=== PATIENT | female | born 1950 | race Caucasian/White ===

== ENCOUNTER 2016-10-02 07:08 | Emergency (ER) | payer OTHER ==
--- NOTE | 2016-10-02 07:55 | EDM.PDOC ---
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 In the past has been on the right side but this time it is on the left. Symptoms started yesterday. She has weakness of the left side of the face with inability to completely close her left eye. She's having taste disturbance and pain behind her left ear. When she drinks her coffee she notes that it runs out of the left corner of her mouth as well. She's had no recent illnesses or colds fevers or chills. she has no other neurologic complaints and no weakness of extremities.] Review of systems: As per history of present illness and below otherwise all systems reviewed and negative. Past medical history: As per history of present illness and as reviewed below otherwise noncontributory. Surgical history: As per history of present illness and as reviewed below otherwise noncontributory. Social history: No reported history of drug or alcohol abuse. Family history: As per history of present illness and as reviewed below otherwise noncontributory. Physical exam: HEENT: Her left eye is a little erythematous and she cannot completely close her left eye. The nasolabial fold on the left side is slightly diminished compared to the right. Her TMs are clear canals are clear a little S. wrinkling of the left forehead compared to the right. Also slightly less sensation to light touch of the left cheek as compared to the right Lungs: Clear to auscultation, breath sounds equal bilaterally, chest nontender. Heart: S1S2, regular, negative for clicks, rubs, or JVD. Abdomen: Soft, nondistended, nontender. Negative for masses or hepatosplenomegaly. Negative for costovertebral tenderness. Pelvis: Stable nontender. Genitourinary: Deferred. Rectal: Deferred. Extremities: Atraumatic, negative for cords or calf pain. Neurovascular unremarkable. Neuro: Awake, alert, oriented. Diagnostics: [] Therapeutics: [] Impression: [Begum's palsy] Plan: [She is given acyclovir 4 mg 5 times a day for 10 days and prednisone 60 mg a day for 5 days and then taper down 1 pill a day. 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 She also has guttate cellophane over her on a this is something that she learned from ENT . this will collect moisture in she won't have to take that left eye shut then.] Definitive disposition and diagnosis as appropriate pending reevaluation and review of above. - Related Data Allergies Allergy/AdvReac Type Severity Reaction Status Date / Time No Known Allergies Allergy Verified 10/02/16 07:28 Home Meds: Home Meds Apixaban [Eliquis] 5 mg PO BID 10/02/16 [History] DULoxetine [Cymbalta] 30 mg PO BID 10/02/16 [History] Lisinopril 20 mg PO DAILY 10/02/16 [History] Omeprazole 40 mg PO DAILY 10/02/16 [History] Past Medical History HEENT History: Reports: Impaired Vision Other HEENT History: wears glasses Cardiovascular History: Reports: Afib, Hypertension Respiratory History: Reports: Sleep Apnea Other Respiratory History: c-pap Gastrointestinal History: Reports: GERD Genitourinary History: Reports: Renal Calculus [employer]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: Musculoskeletal History: Reports: Fibromyalgia Neurological History: Reports: Other (See Below) Other Neuro History: [place] Endocrine/Metabolic History: Reports: Obesity/BMI 30+ - Infectious Disease History Infectious Disease History: Reports: Chicken Pox, Mumps - Past Surgical History GI Surgical History: Reports: Colonoscopy Female Surgical History: Reports: Lithotripsy/ESWL Social & Family History - Tobacco Use Smoking Status *Q: Never Smoker - Caffeine Use Caffeine Use: Reports: Coffee, Soda - Recreational Drug Use Recreational Drug Use: No ED ROS GENERAL - Review of Systems Review Of Systems: ROS reveals no pertinent complaints other than HPI. ED EXAM, NEURO - Physical Exam Exam: See Below Course - Vital Signs Last Recorded V/S: Last Vital Signs Temp 36.9 C 10/02/16 07:43 Pulse 70 10/02/16 07:43 Resp 16 10/02/16 07:43 BP 180/100 H 10/02/16 07:43 Pulse Ox 94 L 10/02/16 07:43 Departure - Departure Time of Disposition: 07:54 Disposition: Home, Self-Care 01 Condition: good Clinical Impression: Left-sided Begum's palsy - Discharge Information Forms: ED Department Discharge Additional Instructions: Please followup with your doctor in 2 weeks if this has not resolved and see if there is anything else that could be done for you.
[2016-10-02 07:57] VITALS: BP 164/111
== END 2016-10-02 08:19 | disposition home or self-care (01) ==
LOC: JP.ED 07:08
DX: G51.0 Bell's palsy (principal); I48.91 Unspecified atrial fibrillation; I10 Essential (primary) hypertension; K21.9 Gastro-esophageal reflux disease without esophagitis; E66.9 Obesity, unspecified; Z68.35 Body mass index [BMI] 35.0-35.9, adult; Z87.442 Personal history of urinary calculi; Z79.899 Other long term (current) drug therapy
CPT/HCPCS: 99284

== ENCOUNTER 2017-01-17 16:51 | Emergency (ER) | payer OTHER ==
[2017-01-17] MEDS ORDERED: Diltiazem 25 MG/5 ML SDV IVPUSH ONE (17:21)
--- NOTE | 2017-01-17 17:25 | EDM.PDOC ---
ED HPI GENERAL MEDICAL PROBLEM - General Chief Complaint: Cardiovascular Problem Time Seen by Provider: 01/17/17 17:10 Source of Information: Reports: Patient, Family History Limitations: Reports: No Limitations - History of Present Illness INITIAL COMMENTS - FREE TEXT/NARRATIVE: 58-year-old female with a known history of proximal atrial fibrillation developed palpitations, a slight chest pressure and mild dyspnea one hour ago. No nausea or vomiting or diaphoresis. She is anticoagulated with Eliquis. She has been very sedentary lately. Onset: Sudden Duration: Hour(s): (about one hour ago) Severity: Mild Improves with: Reports: None Worsens with: Reports: None Associated Symptoms: Reports: Chest Pain (slight chest pressure), Shortness of Breath (just mild shortness of breath). Denies: Cough, Malaise, Nausea/Vomiting , Weakness chest Pain Score (Numeric/FACES): 4 - Related Data Allergies Allergy/AdvReac Type Severity Reaction Status Date / Time No Known Allergies Allergy Verified 01/17/17 17:01 Home Meds: Home Meds Apixaban [Eliquis] 5 mg PO BID 10/02/16 [History] DULoxetine [Cymbalta] 30 mg PO BID 10/02/16 [History] Lisinopril 20 mg PO BEDTIME 10/02/16 [History] ALPRAZolam [Alprazolam] 0.25 mg PO DAILY PRN 01/17/17 [History] Past Medical History HEENT History: Reports: Impaired Vision Other HEENT History: wears glasses Cardiovascular History: Reports: Afib, Hypertension Respiratory History: Reports: Sleep Apnea Other Respiratory History: c-pap Gastrointestinal History: Reports: GERD Genitourinary History: Reports: Renal Calculus [employer] History: Reports: Musculoskeletal History: Reports: Fibromyalgia Neurological History: Reports: Other (See Below) Other Neuro History: [place] Psychiatric History: Reports: Anxiety Endocrine/Metabolic History: Reports: Obesity/BMI 30+ - Infectious Disease History Infectious Disease History: Reports: Chicken Pox, Mumps - Past Surgical History GI Surgical History: Reports: Colonoscopy Female Surgical History: Reports: Lithotripsy/ESWL Social & Family History - Tobacco Use Smoking Status *Q: Never Smoker - Caffeine Use Caffeine Use: Reports: Coffee, Soda - Recreational Drug Use Recreational Drug Use: No ED ROS GENERAL - Review of Systems Review Of Systems: See Below Constitutional: Denies: Fever, Chills, Malaise HEENT: Reports: Throat Pain (slight pain radiating into the throat from the chest), Other (some periorbital weakness from previous Begum's palsy on the left side). Denies: Vision Change Respiratory: Reports: Shortness of Breath (slight shortness of breath) Cardiovascular: Reports: Chest Pain (mild substernal pressure) GI/Abdominal: Reports: No Symptoms Skin: Reports: No Symptoms Neurological: Reports: Other (has some remaining slight deficit of the left eye from a recent Begum's palsy) Psychiatric: Reports: No Symptoms ED EXAM, GENERAL - Physical Exam Exam: See Below Exam Limited By: No Limitations General Appearance: Alert, No Apparent Distress Throat/Mouth: Normal Inspection Head: Atraumatic Neck: Normal Inspection Respiratory/Chest: No Respiratory Distress, Lungs Clear Cardiovascular: Tachycardia, Irregularly Irregular GI/Abdominal: Soft, Non-Tender Extremities: Normal Inspection. No: Pedal Edema Neurological: Alert, Oriented Psychiatric: Normal Affect, Normal Mood Skin Exam: Warm, Dry EKG INTERPRETATION EKG Date: 01/17/17 Rhythm: A-Fib Rate (Beats/Min): 112 Course - Vital Signs Last Recorded V/S: Last Vital Signs Temp 98.1 F 01/17/17 17:37 Pulse 87 01/17/17 17:54 Resp 16 01/17/17 17:54 BP 128/80 01/17/17 17:54 Pulse Ox 95 01/17/17 17:54 - Orders/Labs/Meds Orders: Active Orders 24 hr Category Date Time Status EKG Documentation Completion [RC] ASDIRECTED Care 01/17/17 17:21 Active EKG 12 Lead [EK] Routine Ther 01/17/17 17:21 Ordered Labs: Laboratory Tests 01/17/17 01/17/17 01/17/17 Range/Units 17:31 17:31 17:31 WBC 6.7 (4.5-11.0) K/uL RBC 5.36 (3.30-5.50) M/uL Hgb 16.1 H (12.0-15.0) g/dL Hct 47.6 (36.0-48.0) % MCV 89 (80-98) fL MCH 30 (27-31) pg MCHC 34 (32-36) % Plt Count 311 (150-400) K/uL Neut % (Auto) 47 (36-66) % Lymph % (Auto) 39 (24-44) % [place] % (Auto) 11 H (2-6) % Eos % (Auto) 2 (2-4) % Baso % (Auto) 2 H (0-1) % Sodium 144 (140-148) mmol/L Potassium 4.1 (3.6-5.2) mmol/L Chloride 106 (100-108) mmol/L Carbon Dioxide 31 (21-32) mmol/L Anion Gap 6.7 (5.0-14.0) mmol/L BUN 19 H (7-18) mg/dL Creatinine 0.7 (0.6-1.0) mg/dL Est Cr Clr Drug Dosing 77.59 mL/min Estimated GFR (MDRD) > 60 (>60) Glucose 108 H (74-106) mg/dL Calcium 9.4 (8.5-10.1) mg/dL Troponin I < 0.017 (0.000-0.056) ng/mL Meds: Medications Discontinued Medications Generic Name Dose Route Start Last Admin Trade Name Freq PRN Reason Stop Dose Admin Diltiazem HCl 20 mg 01/17/17 17:21 01/17/17 17:30 Diltiazem IVPUSH 01/17/17 17:22 20 mg ONETIME ONE Administration Diltiazem HCl 180 mg 01/17/17 18:25 01/17/17 18:38 Cardizem Cd PO 01/17/17 18:26 180 mg ONETIME ONE Administration - Re-Assessments/Exams Free Text/Narrative Re-Assessment/Exam: 01/17/17 17:31 An IV was started, CBC, BMP and troponin were obtained. Patient was given 20 mg of Cardizem IV and was monitored while we were waiting for lab results. 01/17/17 18:25 Patient received excellent rate control with the 20 mg of Cardizem IV but did not convert. Her labs returned reassuring including a normal troponin. She was given 180 mg of extended-release Cardizem by mouth, stay nothing by mouth after midnight tonight and return tomorrow morning to confirm normal sinus rhythm or will be converted by the hospitalist service. I discussed her case with Dr. Heard and he will see her tomorrow morning when she returns. Departure - Departure Time of Disposition: 19:07 Disposition: Home, Self-Care 01 Condition: Good Clinical Impression: Atrial fibrillation Instructions: Atrial Fibrillation, [id number] Referrals: PCP,None [Primary Care Provider] - Forms: ED Department Discharge Care Plan Goals: Avoid caffeine tonight, rest and return tomorrow morning for recheck of your rhythm. You may return sooner if you become uncomfortable or you feel you're rate is uncontrolled. Resume your regular medications otherwise. - My Orders Last 24 Hours: My Active Orders 01/17/17 17:21 EKG Documentation Completion [RC] ASDIRECTED EKG 12 Lead [EK] Routine - Assessment/Plan Last 24 Hours: My Active Orders 01/17/17 17:21 EKG Documentation Completion [RC] ASDIRECTED EKG 12 Lead [EK] Routine
[2017-01-17 17:54] VITALS: BP 128/80
[2017-01-17] MEDS ORDERED: Diltiazem 180 MG Cap.CD PO ONE (18:25)
== END 2017-01-17 19:07 | disposition home or self-care (01) ==
LOC: JP.ED 16:51
DX: I48.91 Unspecified atrial fibrillation (principal); H54.7 Unspecified visual loss; I10 Essential (primary) hypertension; K21.9 Gastro-esophageal reflux disease without esophagitis; F41.9 Anxiety disorder, unspecified; E66.9 Obesity, unspecified; Z68.36 Body mass index [BMI] 36.0-36.9, adult
CPT/HCPCS: 36415; 80048; 84484; 85025; 93005; 96374; 99285; A9270; J3490

== ENCOUNTER 2017-02-04 15:24 | Emergency (ER) | payer OTHER ==
[2017-02-04] MEDS ORDERED: Sodium Chloride 0.9% 10 ML Syringe FLUSH PRN (15:41)
[2017-02-04] MEDS ORDERED: Diltiazem 25 MG/5 ML SDV IVPUSH ONE (15:42)
[2017-02-04] MEDS ORDERED: Sodium Chloride 0.9% 1,000 ML IV SCH (15:45)
[2017-02-04] MEDS ORDERED: Diltiazem 100 MG in Sodium Chloride 0.9% 100 ML IV SCH (15:45)
--- NOTE | 2017-02-04 15:48 | EDM.PDOC ---
ED HPI GENERAL MEDICAL PROBLEM - General Chief Complaint: Cardiovascular Problem Stated Complaint: A FIB Time Seen by Provider: 02/04/17 15:26 Source of Information: Reports: Patient, Old Records, RN Notes Reviewed History Limitations: Reports: No Limitations - History of Present Illness INITIAL COMMENTS - FREE TEXT/NARRATIVE: 67-year-old female presents emergency department day complaint of palpitations, she has a known history of paroxysmal atrial fibrillation is on Eliquis, she had an event approximately 2 weeks ago which was converted with Cardizem, this particular event she states started 30 minutes ago however she is just eaten a large meal prior to presentation, she is complaining of chest discomfort and pressure no nausea vomiting no shortness of breath no diaphoresis Chest Pain Score (Numeric/FACES): 7 - Related Data Allergies Allergy/AdvReac Type Severity Reaction Status Date / Time No Known Allergies Allergy Verified 02/04/17 15:41 Home Meds: Home Meds Apixaban [Eliquis] 5 mg PO BID 10/02/16 [History] DULoxetine [Cymbalta] 30 mg PO BID 10/02/16 [History] Lisinopril 20 mg PO BEDTIME 10/02/16 [History] ALPRAZolam [Alprazolam] 0.25 mg PO DAILY PRN 01/17/17 [History] Past Medical History HEENT History: Reports: Impaired Vision Other HEENT History: wears glasses Cardiovascular History: Reports: Afib, Hypertension Respiratory History: Reports: Sleep Apnea Other Respiratory History: c-pap Gastrointestinal History: Reports: GERD Genitourinary History: Reports: Renal 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 [employer]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: Musculoskeletal History: Reports: Fibromyalgia Neurological History: Reports: Other (See Below) Other Neuro History: [place] Psychiatric History: Reports: Anxiety Endocrine/Metabolic History: Reports: Obesity/BMI 30+ - Infectious Disease History Infectious Disease History: Reports: Chicken Pox, Mumps - Past Surgical History GI Surgical History: Reports: Colonoscopy Female Surgical History: Reports: Lithotripsy/ESWL Social & Family History - Tobacco Use Smoking Status *Q: Never Smoker - Caffeine Use Caffeine Use: Reports: Soda - Recreational Drug Use Recreational Drug Use: No ED ROS GENERAL - Review of Systems Review Of Systems: See Below Constitutional: Reports: No Symptoms HEENT: Reports: No Symptoms Respiratory: Reports: No Symptoms Cardiovascular: Reports: Chest Pain GI/Abdominal: Reports: No Symptoms : Reports: No Symptoms Musculoskeletal: Reports: No Symptoms Skin: Reports: No Symptoms Neurological: Reports: No Symptoms ED EXAM, GENERAL - Physical Exam Exam: See Below Exam Limited By: No Limitations General Appearance: Alert, WD/WN, No Apparent Distress Eye Exam: Bilateral Eye: Normal Inspection Head: Atraumatic, Normocephalic Neck: Normal Inspection, Supple, Non-Tender, Full Range of Motion Respiratory/Chest: No Respiratory Distress, Lungs Clear, Normal Breath Sounds, No Accessory Muscle Use Cardiovascular: No Murmur, Tachycardia GI/Abdominal: Soft, Non-Tender Course - Vital Signs Last Recorded V/S: Last Vital Signs Temp 97.5 F 02/04/17 15:38 Pulse 77 02/04/17 17:51 Resp 15 02/04/17 17:51 BP 162/97 H 02/04/17 17:51 Pulse Ox 96 02/04/17 17:51 - Orders/Labs/Meds Orders: Active Orders 24 hr Category Date Time Status Cardiac Monitoring [RC] .As Directed Care 02/04/17 15:41 Active EKG Documentation Completion [RC] ASDIRECTED Care 02/04/17 15:42 Active Peripheral IV Care [RC] . DIRECTED Care 02/04/17 15:42 Active Chest 1V Frontal [CR] Stat Exams 02/04/17 15:41 Ordered Sodium Chloride 0.9% [Normal Saline] 1,000 ml Med 02/04/17 15:45 Active IV ASDIRECTED Sodium Chloride 0.9% [Saline Flush] Med 02/04/17 15:41 Active 10 ml FLUSH ASDIRECTED PRN Peripheral IV Insertion Adult [OM.PC] Stat Oth 02/04/17 15:41 Ordered EKG 12 Lead [EK] Stat Ther 02/04/17 15:41 Ordered Medication Orders Sodium Chloride (Normal Saline) 1,000 mls @ 125 mls/hr IV ASDIRECTED KATHY Last Admin: 02/04/17 15:54 Dose: 125 mls/hr Sodium Chloride (Saline Flush) 10 ml FLUSH ASDIRECTED PRN PRN Reason: Keep Vein Open Labs: Laboratory Tests 02/04/17 02/04/17 Range/Units 15:52 15:52 WBC 8.4 (4.5-11.0) K/uL RBC 4.94 (3.30-5.50) M/uL Hgb 15.2 H (12.0-15.0) g/dL Hct 43.8 (36.0-48.0) % MCV 89 (80-98) fL MCH 31 (27-31) pg MCHC 35 (32-36) % Plt Count 287 (150-400) K/uL Neut % (Auto) 61 (36-66) % Lymph % (Auto) 29 (24-44) % [place] % (Auto) 8 H (2-6) % Eos % (Auto) 1 L (2-4) % Baso % (Auto) 1 (0-1) % Sodium 144 (140-148) mmol/L Potassium 3.2 L (3.6-5.2) mmol/L Chloride 106 (100-108) mmol/L Carbon Dioxide 25 (21-32) mmol/L Anion Gap 16.2 H (5.0-14.0) mmol/L BUN 16 (7-18) mg/dL Creatinine 0.6 (0.6-1.0) mg/dL Est Cr Clr Drug Dosing 89.27 mL/min Estimated GFR (MDRD) > 60 (>60) Glucose 136 H (74-106) mg/dL Calcium 8.8 (8.5-10.1) mg/dL Total Bilirubin 0.4 (0.2-1.0) mg/dL AST 30 (15-37) U/L ALT 53 (12-78) U/L Alkaline Phosphatase 60 (46-116) U/L Troponin I 0.047 (0.000-0.056) ng/mL Total Protein 7.0 (6.4-8.2) g/dL Albumin 3.6 (3.4-5.0) g/dL Globulin 3.4 (2.3-3.5) g/dL Albumin/Globulin Ratio 1.1 L (1.2-2.2) Meds: Medications Generic Name Dose Route Start Last Admin Trade Name Freq PRN Reason Stop Dose Admin Sodium Chloride 1,000 mls @ 125 mls/hr 02/04/17 15:45 02/04/17 15:54 Normal Saline IV 125 mls/hr ASDIRECTED KATHY Administration Sodium Chloride 10 ml 02/04/17 15:41 Saline Flush FLUSH ASDIRECTED PRN Keep Vein Open Discontinued Medications Generic Name Dose Route Start Last Admin Trade Name Philip PRN Reason Stop Dose Admin Diltiazem HCl 25 mg 02/04/17 15:42 02/04/17 16:01 Diltiazem IVPUSH 02/04/17 15:43 25 mg ONETIME ONE Administration Diltiazem HCl 180 mg 02/04/17 17:38 02/04/17 18:04 Cardizem Cd PO 02/04/17 17:39 180 mg ONETIME ONE Administration Diltiazem HCl 100 mg/ Sodium 100 mls @ 5 mls/hr 02/04/17 15:45 02/04/17 16:07 Chloride IV 5 mg/hr TITRATE KATHY 5 mls/hr Protocol Administration 5 MG/HR Ibutilide Fumarate 1 mg 02/04/17 16:54 02/04/17 17:32 Corvert IVPUSH 02/04/17 16:55 1 mg ONETIME ONE Administration Departure - Departure Time of Disposition: 18:15 Disposition: Home, Self-Care 01 Condition: Good Clinical Impression: Paroxysmal atrial fibrillation Referrals: PCP,None [Primary Care Provider] - Forms: ED Department Discharge Additional Instructions: please return in the morning if you are in atrial fibrillation with rate control , do not eat if you're returning to the emergency department, if you do convert to a regular rhythm please keep your follow-up appointment with cardiology when you return to [place] - My Orders Last 24 Hours: My Active Orders 02/04/17 15:41 Cardiac Monitoring [RC] .As Directed Chest 1V Frontal [CR] Stat Sodium Chloride 0.9% [Saline Flush] 10 ml FLUSH ASDIRECTED PRN Peripheral IV Insertion Adult [OM.PC] Stat EKG 12 Lead [EK] Stat 02/04/17 15:42 EKG Documentation Completion [RC] ASDIRECTED Peripheral IV Care [RC] . DIRECTED 02/04/17 15:45 Sodium Chloride 0.9% [Normal Saline] 1,000 ml IV ASDIRECTED - Assessment/Plan Last 24 Hours: My Active Orders 02/04/17 15:41 Cardiac Monitoring [RC] .As Directed Chest 1V Frontal [CR] Stat Sodium Chloride 0.9% [Saline Flush] 10 ml FLUSH ASDIRECTED PRN Peripheral IV Insertion Adult [OM.PC] Stat EKG 12 Lead [EK] Stat 02/04/17 15:42 EKG Documentation Completion [RC] ASDIRECTED Peripheral IV Care [RC] . DIRECTED 02/04/17 15:45 Sodium Chloride 0.9% [Normal Saline] 1,000 ml IV ASDIRECTED Plan: Assessment Acuity = acute Site and laterality = paroxysmal atrial fibrillationcurrently on anticoagulation with Eliquis Etiology = unclear etiology Manifestations = none Location of injury = Home Lab values = CBC within normal limits, potassium low at 3.2 consistent hypokalemia, troponin negative, EKG demonstrates atrial fibrillation is no ST changes or depressions Plan I did review lab work EKG chest x-ray results with her initially she came in with atrial fibrillation in the 130s range but did try Cardizem bolus and drip also tried Corvert she does have a history of flutter all were unsuccessful in converting her to a sinus rhythm she did slow down to a controlled rate of around 80. Unfortunately she was not a candidate for cardioversion immediately because she had eaten just prior to arrival I discussed with her options since this recently happened 2 weeks ago we are going to try Cardizem long acting 180 mg 1 tablet she is going to go home she will return in the morning nothing by mouth if she is still in atrial fibrillation however if she remains in sinus rhythm she will follow-up with her cardiology upon return to [place], will remain on Eliquis Patient was in agreement with the plan all questions were answered, they were instructed to return to the emergency department or call for worsening symptoms. This note was dictated using [employer] voice recognition software please call with any questions.
[2017-02-04] MEDS ORDERED: Ibutilide 1 MG/10 ML Vial IVPUSH ONE (16:54)
[2017-02-04] MEDS ORDERED: Diltiazem 180 MG Cap.CD PO ONE (17:38)
[2017-02-04 18:03] VITALS: BP 162/97
--- NOTE | 2017-02-06 10:20 | CR ---
Chest 1V Frontal HISTORY: Chest pain COMPARISON: None FINDINGS: Mild cardiomegaly. Borderline vascular prominence in the perihilar regions. No dense infilt rate or effusion.
== END 2017-02-04 18:37 | disposition home or self-care (01) ==
LOC: JP.ED 15:24
DX: I48.0 Paroxysmal atrial fibrillation (principal); I10 Essential (primary) hypertension; G47.30 Sleep apnea, unspecified; K21.9 Gastro-esophageal reflux disease without esophagitis; F41.9 Anxiety disorder, unspecified; E66.9 Obesity, unspecified; Z98.890 Other specified postprocedural states; Z79.899 Other long term (current) drug therapy
CPT/HCPCS: 36415; 71010; 80053; 84484; 85025; 93005; 96361; 96374; 96375; 99284; A9270; J1742; J3490; J7030; J7040

== ENCOUNTER 2018-11-22 18:23 | Emergency (ER) | payer OTHER ==
[2018-11-22] MEDS ORDERED: Sodium Chloride 0.9% 10 ML Syringe FLUSH PRN (19:36)
[2018-11-22] MEDS ORDERED: Diltiazem 25 MG/5 ML SDV IVPUSH ONE (19:38)
--- NOTE | 2018-11-22 19:40 | EDM.PDOC ---
ED HPI GENERAL MEDICAL PROBLEM - General Chief Complaint: Cardiovascular Problem Stated Complaint: A FIB/CAME FROM CLINIC Time Seen by Provider: 11/22/18 19:28 Source of Information: Reports: Patient, Family, RN Notes Reviewed History Limitations: Reports: No Limitations - History of Present Illness INITIAL COMMENTS - FREE TEXT/NARRATIVE: 68-year-old female presents to the emergency department today complaint of palpitations, she has a known history of atrial fibrillation paroxysmal has had approximately 3-4 events this summer but has always spontaneously returned to sinus rhythm. Was evaluated in the emergency department back in 2017 for paroxysmal atrial fibrillation converted with Cardizem. At this time she feels her rate has slowed down chest pressure and neck pain have resolved. - Related Data Allergies Allergy/AdvReac Type Severity Reaction Status Date / Time No Known Allergies Allergy Verified 11/22/18 18:33 Home Meds: Home Meds Apixaban [Eliquis] 5 mg PO BID 10/02/16 [History] DULoxetine [Cymbalta] 30 mg PO DAILY 10/02/16 [History] Lisinopril 20 mg PO BEDTIME 10/02/16 [History] ALPRAZolam [Alprazolam] 0.25 mg PO DAILY PRN 01/17/17 [History] Past Medical History HEENT History: Reports: Hard of Hearing, Impaired Vision Other HEENT History: wears glasses Cardiovascular History: Reports: Afib, Hypertension Respiratory History: Reports: Sleep Apnea Other Respiratory History: c-pap Gastrointestinal History: Reports: GERD Genitourinary History: Reports: Renal Calculus 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: Musculoskeletal History: Reports: Arthritis, Fibromyalgia Neurological History: Reports: Other (See Below) Other Neuro History: [place] [facility] x3 Psychiatric History: Reports: Anxiety Endocrine/Metabolic History: Reports: Obesity/BMI 30+ Hematologic History: Reports: Anticoagulation Therapy - Infectious Disease History Infectious Disease History: Reports: Chicken Pox, Mumps - Past Surgical History Head Surgeries/Procedures: Reports: None HEENT Surgical History: Reports: Adenoidectomy, Tonsillectomy Cardiovascular Surgical History: Reports: None Respiratory Surgical History: Reports: None GI Surgical History: Reports: Colonoscopy Female Surgical History: Reports: Kidney stone extraction, Lithotripsy/ESWL Endocrine Surgical History: Reports: None Neurological Surgical History: Reports: None Musculoskeletal Surgical History: Reports: None Dermatological Surgical History: Reports: None Social & Family History - Tobacco Use Smoking Status *Q: Never Smoker Second Hand Smoke Exposure: No - Caffeine Use Caffeine Use: Reports: Coffee, Soda - Recreational Drug Use Recreational Drug Use: No ED ROS GENERAL - Review of Systems Review Of Systems: See Below Constitutional: Reports: No Symptoms HEENT: Reports: No Symptoms Respiratory: Reports: No Symptoms Cardiovascular: Reports: Chest Pain, Palpitations GI/Abdominal: Reports: No Symptoms : Reports: No Symptoms Musculoskeletal: Reports: Neck Pain Skin: Reports: No Symptoms Neurological: Reports: No Symptoms ED EXAM, GENERAL - Physical Exam Exam: See Below Exam Limited By: No Limitations General Appearance: Alert, WD/WN, No Apparent Distress Neck: Normal Inspection, Supple, Non-Tender, Full Range of Motion Respiratory/Chest: No Respiratory Distress, Lungs Clear, Normal Breath Sounds, No Accessory Muscle Use, Chest Non-Tender Cardiovascular: No Murmur, Irregularly Irregular GI/Abdominal: Soft, Non-Tender Course - Vital Signs Last Recorded V/S: Last Vital Signs Temp 97.2 F 11/22/18 18:38 Pulse 79 11/22/18 20:22 Resp 19 11/22/18 20:22 BP 132/90 11/22/18 20:22 Pulse Ox 92 L 11/22/18 20:22 - Orders/Labs/Meds Orders: Active Orders 24 hr Category Date Time Status Cardiac Monitoring [RC] .As Directed Care 11/22/18 19:36 Active EKG Documentation Completion [RC] ASDIRECTED Care 11/22/18 19:37 Active Peripheral IV Care [RC] . DIRECTED Care 11/22/18 19:37 Active Diltiazem 125 mg Med 11/22/18 20:45 Active Sodium Chloride 0.9% [Normal Saline] 100 ml IV TITRATE Lactated Ringers [Ringers, Lactated] 1,000 ml Med 11/22/18 19:45 Active IV ASDIRECTED Sodium Chloride 0.9% [Saline Flush] Med 11/22/18 19:36 Active 10 ml FLUSH ASDIRECTED PRN ED Antiarrhythmia Med Reflex [OM.PC] Stat Oth 11/22/18 19:37 Ordered Peripheral IV Insertion Adult [OM.PC] Stat Oth 11/22/18 19:36 Ordered EKG 12 Lead [EK] Stat Ther 11/22/18 19:37 Ordered Medication Orders Lactated Ringer's (Ringers, Lactated) 1,000 mls @ 125 mls/hr IV ASDIRECTED KATHY Last Admin: 11/22/18 19:53 Dose: 125 mls/hr Diltiazem HCl 125 mg/ Sodium (Chloride) 125 mls @ 5 mls/hr IV TITRATE KATHY; Protocol Last Admin: 11/22/18 20:46 Dose: 5 mg/hr, 5 mls/hr Sodium Chloride (Saline Flush) 10 ml FLUSH ASDIRECTED PRN PRN Reason: Keep Vein Open Last Admin: 11/22/18 19:53 Dose: 10 ml Labs: Laboratory Tests 11/22/18 11/22/18 Range/Units 19:40 19:40 WBC 7.9 (4.5-11.0) K/uL RBC 5.28 (3.30-5.50) M/uL Hgb 15.6 H (12.0-15.0) g/dL Hct 48.7 H (36.0-48.0) % MCV 92 (80-98) fL MCH 30 (27-31) pg MCHC 32 (32-36) % Plt Count 295 (150-400) K/uL Neut % (Auto) 57 (36-66) % Lymph % (Auto) 33 (24-44) % [place] % (Auto) 8 H (2-6) % Eos % (Auto) 1 L (2-4) % Baso % (Auto) 1 (0-1) % Sodium 143 (140-148) mmol/L Potassium 4.0 (3.6-5.2) mmol/L Chloride 108 (100-108) mmol/L Carbon Dioxide 28 (21-32) mmol/L Anion Gap 7.1 (5.0-14.0) mmol/L BUN 18 (7-18) mg/dL Creatinine 0.6 (0.6-1.0) mg/dL Est Cr Clr Drug Dosing 88.01 mL/min Estimated GFR (MDRD) > 60 (>60) Glucose 107 H (74-106) mg/dL Calcium 9.3 (8.5-10.1) mg/dL Total Bilirubin 0.4 (0.2-1.0) mg/dL AST 21 (15-37) U/L ALT 38 (12-78) U/L Alkaline Phosphatase 69 (46-116) U/L CK-MB (CK-2) 2.1 (0-3.6) mg/mL Troponin I < 0.017 (0.000-0.056) ng/mL Total Protein 7.0 (6.4-8.2) g/dL Albumin 3.2 L (3.4-5.0) g/dL Globulin 3.8 H (2.3-3.5) g/dL Albumin/Globulin Ratio 0.8 L (1.2-2.2) Meds: Medications Generic Name Dose Route Start Last Admin Trade Name Freq PRN Reason Stop Dose Admin Lactated Ringer's 1,000 mls @ 125 mls/hr 11/22/18 19:45 11/22/18 19:53 Ringers, Lactated IV 125 mls/hr ASDIRECTED KATHY Administration Diltiazem HCl 125 mg/ Sodium 125 mls @ 5 mls/hr 11/22/18 20:45 11/22/18 20:46 Chloride IV 5 mg/hr TITRATE KATHY 5 mls/hr Administration Protocol 5 MG/HR Sodium Chloride 10 ml 11/22/18 19:36 11/22/18 19:53 Saline Flush FLUSH 10 ml ASDIRECTED PRN Administration Keep Vein Open Discontinued Medications Generic Name Dose Route Start Last Admin Trade Name Freq PRN Reason Stop Dose Admin Diltiazem HCl 25 mg 11/22/18 19:38 11/22/18 19:53 Diltiazem IVPUSH 11/22/18 19:39 25 mg ONETIME ONE Administration Departure - Departure Time of Disposition: 21:33 Disposition: Home, Self-Care 01 Condition: Fair Clinical Impression: Atrial fibrillation Qualifiers: Atrial fibrillation type: persistent Qualified Code(s): I48.1 - Persistent atrial fibrillation Instructions: Atrial Fibrillation Referrals: PCP,None [Primary Care Provider] - Forms: ED Department Discharge Additional Instructions: Recommend starting the Cardizem tomorrow one tablet once day recommend following up with education intern as soon as possible, call or return to the emergency department with worsening of symptoms - My Orders Last 24 Hours: My Active Orders 11/22/18 19:36 Cardiac Monitoring [RC] .As Directed Sodium Chloride 0.9% [Saline Flush] 10 ml FLUSH ASDIRECTED PRN Peripheral IV Insertion Adult [OM.PC] Stat 11/22/18 19:37 EKG Documentation Completion [RC] ASDIRECTED Peripheral IV Care [RC] . DIRECTED ED Antiarrhythmia Med Reflex [OM.PC] Stat EKG 12 Lead [EK] Stat 11/22/18 19:45 Lactated Ringers [Ringers, Lactated] 1,000 ml IV ASDIRECTED 11/22/18 20:45 Diltiazem 125 mg Sodium Chloride 0.9% [Normal Saline] 100 ml IV TITRATE - Assessment/Plan Last 24 Hours: My Active Orders 11/22/18 19:36 Cardiac Monitoring [RC] .As Directed Sodium Chloride 0.9% [Saline Flush] 10 ml FLUSH ASDIRECTED PRN Peripheral IV Insertion Adult [OM.PC] Stat 11/22/18 19:37 EKG Documentation Completion [RC] ASDIRECTED Peripheral IV Care [RC] . DIRECTED ED Antiarrhythmia Med Reflex [OM.PC] Stat EKG 12 Lead [EK] Stat 11/22/18 19:45 Lactated Ringers [Ringers, Lactated] 1,000 ml IV ASDIRECTED 11/22/18 20:45 Diltiazem 125 mg Sodium Chloride 0.9% [Normal Saline] 100 ml IV TITRATE Plan: Assessment Acuity = acute Site and laterality = atrial fibrillation Etiology = unknown etiology Manifestations none Location of injury = Home Lab values = CBC, CMP, troponin unremarkable initial EKG shows atrial fibrillation rate around 120 Plan I did discuss options with her including cardioversion which she declined she does take eliquis has been anticoagulated for some time Cardizem was affect full for her heart rate did slow down into the 80s she elected to continue on Cardizem daily until she spontaneously converts or has a opportunity to visit with education intern who she has established care with This note was dictated using Connected voice recognition software please call with any questions on syntax or grammar.
[2018-11-22] MEDS ORDERED: Lactated Ringers 1,000 ML IV SCH (19:45)
[2018-11-22 20:23] VITALS: BP 132/90; PULSE 79
[2018-11-22] MEDS ORDERED: Diltiazem 125 MG in Sodium Chloride 0.9% 100 ML IV SCH (20:45)
== END 2018-11-22 21:49 | disposition home or self-care (01) ==
LOC: JP.ED 18:23
DX: I48.1 Persistent atrial fibrillation (principal); I10 Essential (primary) hypertension; K21.9 Gastro-esophageal reflux disease without esophagitis; F41.9 Anxiety disorder, unspecified; Z79.01 Long term (current) use of anticoagulants; Z79.899 Other long term (current) drug therapy
CPT/HCPCS: 36415; 80053; 82553; 84484; 85025; 93005; 96361; 96365; 96376; 99285; J3490; J7030; J7120

== ENCOUNTER 2020-12-22 19:35 | Emergency (ER) | payer OTHER, MEDICARE ==
[2020-12-22 19:55] VITALS: BP 141/84; PULSE 76
--- NOTE | 2020-12-22 20:32 | EDM.PDOC ---
ED HPI GENERAL MEDICAL PROBLEM - General Chief Complaint: Cardiovascular Problem Stated Complaint: CHEST PAINS,FAST HEART RATE Time Seen by Provider: 12/22/20 20:27 Source of Information: Reports: Patient History Limitations: Reports: No Limitations - History of Present Illness INITIAL COMMENTS - FREE TEXT/NARRATIVE: pt felt like she had a episode of atrial fib which lasted for about 1 hour. She did get tight in her chest and alittle neck and jaw pain. She was not sob. She states she did monitor the rhytm and it was definitely irregular. Onset: Today, Sudden Duration: Other (lasted about 1/2 hour) Location: Reports: Generalized Associated Symptoms: Reports: Other ( tightness in the chest. ) Chest Pain Score (Numeric/FACES): 4 - Related Data Allergies Allergy/AdvReac Type Severity Reaction Status Date / Time No Known Allergies Allergy Verified 12/22/20 19:57 Home Meds: Home Meds Apixaban [Eliquis] 5 mg PO BID 10/02/16 [History] DULoxetine [Cymbalta] 2 tab PO BEDTIME 10/02/16 [History] Lisinopril 2 tab PO DAILY 10/02/16 [History] ALPRAZolam [Alprazolam] 0.25 mg PO DAILY PRN 01/17/17 [History] Omeprazole 1 tab PO DAILY 12/22/20 [History] Sotalol [Betapace] 1 tab PO BID 12/22/20 [History] hydroCHLOROthiazide [Hydrochlorothiazide] 1 tab PO DAILY 12/22/20 [History] Past Medical History HEENT History: Reports: Hard of Hearing, Impaired Vision Other HEENT History: wears glasses Cardiovascular History: Reports: Afib, Hypertension Respiratory History: Reports: Sleep Apnea Other Respiratory History: c-pap Gastrointestinal History: Reports: GERD Genitourinary History: Reports: Renal Calculus 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: Musculoskeletal History: Reports: Arthritis, Fibromyalgia Neurological History: Reports: Other (See Below) Other Neuro History: [place] [facility] x3 Psychiatric History: Reports: Anxiety Endocrine/Metabolic History: Reports: Obesity/BMI 30+ Hematologic History: Reports: Anticoagulation Therapy - Infectious Disease History Infectious Disease History: Reports: Chicken Pox, Mumps - Past Surgical History Head Surgeries/Procedures: Reports: None HEENT Surgical History: Reports: Adenoidectomy, Tonsillectomy Cardiovascular Surgical History: Reports: None Respiratory Surgical History: Reports: None GI Surgical History: Reports: Colonoscopy Female Surgical History: Reports: Kidney stone extraction, Lithotripsy/ESWL Endocrine Surgical History: Reports: None Neurological Surgical History: Reports: None Musculoskeletal Surgical History: Reports: None Dermatological Surgical History: Reports: None Social & Family History - Tobacco Use Tobacco Use Status *Q: Never Tobacco User - Caffeine Use Caffeine Use: Reports: None - Recreational Drug Use Recreational Drug Use: No ED ROS GENERAL - Review of Systems Review Of Systems: See Below Constitutional: Reports: No Symptoms HEENT: Reports: No Symptoms Respiratory: Reports: No Symptoms Cardiovascular: Reports: Palpitations, Other ( chest tightness) Endocrine: Reports: No Symptoms GI/Abdominal: Reports: No Symptoms : Reports: No Symptoms Musculoskeletal: Reports: No Symptoms ED EXAM, GENERAL - Physical Exam Exam: See Below Free Text/Narrative:: pt arrived with a history of an episode of irregular heart beat which lasted 1 hour. She did develop some chest tightness. Exam Limited By: No Limitations General Appearance: Alert, No Apparent Distress, Anxious, Other (pt feels better at this time. ) Ears: Normal TMs Nose: Normal Inspection Throat/Mouth: Normal Inspection Head: Atraumatic Neck: Normal Inspection Respiratory/Chest: No Respiratory Distress Cardiovascular: Regular Rate, Rhythm GI/Abdominal: Soft, Non-Tender (Female) Exam: Deferred Rectal (Female) Exam: Deferred Back Exam: Normal Inspection Extremities: Normal Inspection Neurological: Alert, Oriented, Normal Cognition Course - Vital Signs Last Recorded V/S: Last Vital Signs Temp 36.2 C 12/22/20 20:04 Pulse 76 12/22/20 20:04 Resp 14 12/22/20 20:04 BP 141/84 H 12/22/20 20:04 Pulse Ox 96 12/22/20 20:04 - Orders/Labs/Meds Labs: Laboratory Tests 12/22/20 12/22/20 12/22/20 Range/Units 20:44 20:44 20:44 WBC 5.8 (4.5-11.0) K/uL RBC 4.74 (3.30-5.50) M/uL Hgb 14.3 (12.0-15.0) g/dL Hct 43.2 (36.0-48.0) % MCV 91 (80-98) fL MCH 30 (27-31) pg MCHC 33 (32-36) % Plt Count 328 (150-400) K/uL Neut % (Auto) 50.4 (36-66) % Lymph % (Auto) 32.9 (24-44) % [place] % (Auto) 13.2 H (2-6) % Eos % (Auto) 2.8 (2-4) % Baso % (Auto) 0.7 (0-1) % Sodium 144 (140-148) mmol/L Potassium 4.1 (3.6-5.2) mmol/L Chloride 106 (100-108) mmol/L Carbon Dioxide 30 (21-32) mmol/L Anion Gap 7.9 (5.0-14.0) mmol/L BUN 17 (7-18) mg/dL Creatinine 0.6 (0.6-1.0) mg/dL Est Cr Clr Drug Dosing 85.50 mL/min Estimated GFR (MDRD) > 60 (>60) Glucose 115 H (74-106) mg/dL Calcium 8.8 (8.5-10.1) mg/dL Magnesium 1.9 (1.8-2.4) mg/dL Total Bilirubin 0.3 (0.2-1.0) mg/dL AST 24 (15-37) U/L ALT 25 (12-78) U/L Alkaline Phosphatase 63 (46-116) U/L Troponin I < 0.017 (0.000-0.056) ng/mL Total Protein 6.5 (6.4-8.2) g/dL Albumin 2.9 L (3.4-5.0) g/dL Globulin 3.6 H (2.3-3.5) g/dL Albumin/Globulin Ratio 0.8 L (1.2-2.2) Urine Color (YELLOW) Urine Appearance (CLEAR) Urine pH (5.0-8.0) Ur Specific [place] (1.008-1.030) Urine Protein (NEGATIVE) mg/dL Urine Glucose (UA) (NEGATIVE) mg/dL Urine Ketones (NEGATIVE) mg/dL Urine Occult Blood (NEGATIVE) Urine Nitrite (NEGATIVE) Urine Bilirubin (NEGATIVE) Urine Urobilinogen (0.2-1.0) EU/dL Ur Leukocyte Esterase (NEGATIVE) Urine RBC (0-5) Urine WBC (0-5) Ur Epithelial Cells Amorphous Sediment Urine Bacteria Urine Mucus 12/22/20 Range/Units 21:30 WBC (4.5-11.0) K/uL RBC (3.30-5.50) M/uL Hgb (12.0-15.0) g/dL Hct (36.0-48.0) % MCV (80-98) fL MCH (27-31) pg MCHC (32-36) % Plt Count (150-400) K/uL Neut % (Auto) (36-66) % Lymph % (Auto) (24-44) % [place] % (Auto) (2-6) % Eos % (Auto) (2-4) % Baso % (Auto) (0-1) % Sodium (140-148) mmol/L Potassium (3.6-5.2) mmol/L Chloride (100-108) mmol/L Carbon Dioxide (21-32) mmol/L Anion Gap (5.0-14.0) mmol/L BUN (7-18) mg/dL Creatinine (0.6-1.0) mg/dL Est Cr Clr Drug Dosing mL/min Estimated GFR (MDRD) (>60) Glucose (74-106) mg/dL Calcium (8.5-10.1) mg/dL Magnesium (1.8-2.4) mg/dL Total Bilirubin (0.2-1.0) mg/dL AST (15-37) U/L ALT (12-78) U/L Alkaline Phosphatase (46-116) U/L Troponin I (0.000-0.056) ng/mL Total Protein (6.4-8.2) g/dL Albumin (3.4-5.0) g/dL Globulin (2.3-3.5) g/dL Albumin/Globulin Ratio (1.2-2.2) Urine Color Yellow (YELLOW) Urine Appearance Clear (CLEAR) Urine pH 6.0 (5.0-8.0) Ur Specific [place] 1.020 (1.008-1.030) Urine Protein Negative (NEGATIVE) mg/dL Urine Glucose (UA) Negative (NEGATIVE) mg/dL Urine Ketones Negative (NEGATIVE) mg/dL Urine Occult Blood Trace-intact H (NEGATIVE) Urine Nitrite Negative (NEGATIVE) Urine Bilirubin Negative (NEGATIVE) Urine Urobilinogen 0.2 (0.2-1.0) EU/dL Ur Leukocyte Esterase Negative (NEGATIVE) Urine RBC 0-5 (0-5) Urine WBC 0-5 (0-5) Ur Epithelial Cells Not seen Amorphous Sediment Rare Urine Bacteria Rare Urine Mucus Not seen - Re-Assessments/Exams Free Text/Narrative Re-Assessment/Exam: 12/22/20 21:40 pt was fouind to have normal electrolytes. Her rhythm remained stable while in Er . Her trop and magnesium was found to be normal. 01/10/21 09:29 Departure - Departure Time of Disposition: 21:38 Disposition: Home, Self-Care 01 Condition: Fair Clinical Impression: Palpitations, Chest tightness Instructions: Nonspecific Chest Pain, Adult, Palpitations Referrals: Sukh Steiner MD [Primary Care Provider] - Forms: ED Department Discharge Care Plan Goals: low activity tonight, continue same meds, see regular Dr if pt has further symptoms. Sepsis Event Note (ED) - Evaluation Sepsis Screening Result: No Definite Risk
== END 2020-12-22 21:48 | disposition home or self-care (01) ==
LOC: JP.ED 19:35
DX: R07.89 Other chest pain (principal); R00.2 Palpitations; I48.91 Unspecified atrial fibrillation; I10 Essential (primary) hypertension; K21.9 Gastro-esophageal reflux disease without esophagitis; Z79.899 Other long term (current) drug therapy
CPT/HCPCS: 36415; 80053; 81001; 83735; 84484; 85025; 99284

== ENCOUNTER 2021-01-29 09:15 | Emergency (ER) | payer OTHER, MEDICARE ==
[2021-01-29] MEDS ORDERED: Sodium Chloride 0.9% 10 ML Syringe FLUSH PRN (09:26)
[2021-01-29] MEDS ORDERED: Nitroglycerin 0.4 MG Tab.SL SL ONE ×2 (09:32→09:58)
--- NOTE | 2021-01-29 09:32 | EDM.PDOC ---
ED HPI GENERAL MEDICAL PROBLEM - General Stated Complaint: PAIN IN CHEST THROAT Time Seen by Provider: 01/29/21 09:20 Source of Information: Reports: Patient, Old Records, RN History Limitations: Reports: No Limitations - History of Present Illness INITIAL COMMENTS - FREE TEXT/NARRATIVE: 71 yo female with a pHx of intermittent afib presents after she went into afib about 0800h today while in the shower. Says it feels differently for her today in that she has some chest and throat tightness that she has not experienced before. No nausea or diaphoresis. She has not had previous issues with angina and has not had a work up for coronary dz. She does not want to be cardioverted and has never had to be cardioverted for afib in the past. Has not had any of her morning meds yet. Onset: Today, Sudden Onset Date: 01/29/21 Duration: Minutes: (~90), Constant Location: Reports: Chest Quality: Reports: Pressure Severity: Moderate Improves with: Reports: None Worsens with: Reports: None Context: Reports: Other (See HPI) Associated Symptoms: Reports: Chest Pain. 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: Other (see below) (none) Chest Pain Score (Numeric/FACES): 6 - Related Data Allergies Allergy/AdvReac Type Severity Reaction Status Date / Time No Known Allergies Allergy Verified 01/29/21 09:29 Home Meds: Home Meds Apixaban [Eliquis] 5 mg PO BID 10/02/16 [History] DULoxetine [Cymbalta] 60 mg PO BEDTIME 10/02/16 [History] Lisinopril 40 mg PO DAILY 10/02/16 [History] ALPRAZolam [Alprazolam] 0.25 mg PO DAILY PRN 01/17/17 [History] Omeprazole 40 mg PO DAILY 12/22/20 [History] Sotalol [Betapace] 120 mg PO BID 12/22/20 [History] hydroCHLOROthiazide [Hydrochlorothiazide] 25 tab PO DAILY 12/22/20 [History] Magnesium Oxide [Magnesium] 400 mg PO BID 01/29/21 [History] Past Medical History HEENT History: Reports: Hard of Hearing, Impaired Vision Other HEENT History: wears glasses Cardiovascular History: Reports: Afib, Hypertension Respiratory History: Reports: Sleep Apnea Other Respiratory History: c-pap Gastrointestinal History: Reports: GERD Genitourinary History: Reports: Renal Calculus 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: Musculoskeletal History: Reports: Arthritis, Fibromyalgia Neurological History: Reports: Other (See Below) Other Neuro History: [place] x3 Psychiatric History: Reports: Anxiety Endocrine/Metabolic History: Reports: Obesity/BMI 30+ Hematologic History: Reports: Anticoagulation Therapy - Infectious Disease History Infectious Disease History: Reports: Chicken Pox, Mumps - Past Surgical History Head Surgeries/Procedures: Reports: None HEENT Surgical History: Reports: Adenoidectomy, Tonsillectomy Cardiovascular Surgical History: Reports: None Respiratory Surgical History: Reports: None GI Surgical History: Reports: Colonoscopy Female Surgical History: Reports: Kidney stone extraction, Lithotripsy/ESWL Endocrine Surgical History: Reports: None Neurological Surgical History: Reports: None Musculoskeletal Surgical History: Reports: None Dermatological Surgical History: Reports: None Social & Family History - Caffeine Use Caffeine Use: Reports: None ED ROS GENERAL - Review of Systems Review Of Systems: See Below Constitutional: Reports: No Symptoms HEENT: Reports: No Symptoms Respiratory: Reports: No Symptoms Cardiovascular: Reports: Chest Pain, Palpitations. Denies: Edema Endocrine: Reports: No Symptoms GI/Abdominal: Reports: No Symptoms. Denies: Nausea : Reports: No Symptoms Musculoskeletal: Reports: No Symptoms Skin: Reports: No Symptoms. Denies: Diaphoresis Neurological: Reports: No Symptoms Psychiatric: Reports: No Symptoms ED EXAM, GENERAL - Physical Exam Exam: See Below Exam Limited By: No Limitations General Appearance: Alert, WD/WN, No Apparent Distress Eye Exam: Bilateral Eye: Normal Inspection Ears: Normal External Exam, Normal Canal, Hearing Grossly Normal Ear Exam: Bilateral Ear: Auricle Normal, Canal Normal Nose: Normal Inspection, Normal Mucosa, No Blood Throat/Mouth: Normal Inspection, Normal Lips, Normal Oropharynx, Normal Voice, No Airway Compromise Head: Atraumatic, Normocephalic Neck: Normal Inspection Respiratory/Chest: No Respiratory Distress, Lungs Clear, Normal Breath Sounds, No Accessory Muscle Use Cardiovascular: No Edema, Tachycardia (mildly tachycardic), Irregularly Irregular GI/Abdominal: Soft, Non-Tender Extremities: Normal Inspection, Normal Range of Motion, Non-Tender, No Pedal Edema. No: Leonela's Sign Neurological: Alert, Oriented, CN II-XII Intact, Normal Cognition, No Motor/Sensory Deficits Psychiatric: Normal Affect, Normal Mood Skin Exam: Warm, Dry, Intact, Normal Color, No Rash #1 Interpretation EKG Date: 01/29/21 Time: 09:20 Rhythm: A-Fib Rate (Beats/Min): 97 [place]: Normal P-Wave: Absent QRS: Normal ST-T: Normal QT: Normal Comparison: No Change Course - Vital Signs Last Recorded V/S: Last Vital Signs Temp 36.1 C 01/29/21 09:26 Pulse 97 01/29/21 11:05 Resp 16 01/29/21 11:05 BP 138/86 01/29/21 11:05 Pulse Ox 96 01/29/21 11:05 - Orders/Labs/Meds Orders: Active Orders 24 hr Category Date Time Status Cardiac Monitoring [RC] .As Directed Care 01/29/21 09:16 Active Sodium Chloride 0.9% [Saline Flush] Med 01/29/21 09:26 Active 10 ml FLUSH ASDIRECTED PRN Saline Lock Insert [OM.PC] Routine Oth 01/29/21 09:26 Ordered EKG 12 Lead [EK] Routine Ther 01/29/21 09:16 Ordered Medication Orders Sodium Chloride (Sodium Chloride 0.9% 10 Ml Syringe) 10 ml FLUSH ASDIRECTED PRN PRN Reason: Keep Vein Open Last Admin: 01/29/21 09:42 Dose: 10 ml Documented by: DYAN Labs: Laboratory Tests 01/29/21 01/29/21 Range/Units 09:38 11:15 Sodium 140 (140-148) mmol/L Potassium 3.9 (3.6-5.2) mmol/L Chloride 104 (100-108) mmol/L Carbon Dioxide 27 (21-32) mmol/L Anion Gap 8.7 (5.0-14.0) mmol/L BUN 18 (7-18) mg/dL Creatinine 0.7 (0.6-1.0) mg/dL Est Cr Clr Drug Dosing 72.20 mL/min Estimated GFR (MDRD) > 60 (>60) Glucose 138 H (74-106) mg/dL Calcium 9.2 (8.5-10.1) mg/dL Troponin I < 0.017 < 0.017 (0.000-0.056) ng/mL Meds: Medications Generic Name Dose Route Start Last Admin Trade Name Philip PRN Reason Stop Dose Admin Sodium Chloride 10 ml 01/29/21 09:26 01/29/21 09:42 Sodium Chloride 0.9% 10 Ml Syringe FLUSH 10 ml ASDIRECTED PRN Administration Keep Vein Open Discontinued Medications Generic Name Dose Route Start Last Admin Trade Name Philip PRN Reason Stop Dose Admin Acetaminophen 1,000 mg 01/29/21 10:08 01/29/21 10:15 Acetaminophen 500 Mg Tab PO 01/29/21 10:09 1,000 mg ONETIME ONE Administration Nitroglycerin 0.4 mg 01/29/21 09:32 01/29/21 09:42 Nitroglycerin 0.4 Mg Tab.Sl SL 01/29/21 09:33 0.4 mg ONETIME ONE Administration Nitroglycerin 0.4 mg 01/29/21 09:58 01/29/21 10:01 Nitroglycerin 0.4 Mg Tab.Sl SL 01/29/21 09:59 0.4 mg ONETIME ONE Administration - Re-Assessments/Exams Free Text/Narrative Re-Assessment/Exam: 01/29/21 09:59 Got about 50% reduction in her chest tightness after NTG, BP actually went up. Will repeat dose. Free Text/Narrative Re-Assessment/Exam: 01/29/21 10:14 Pain gone after 2nd NTG. Will check a 2nd trop. Free Text/Narrative Re-Assessment/Exam: 01/29/21 11:48 Still in afib, rate is down a bit after she took her Sotalol. Trops neg x 2. Departure - Departure Time of Disposition: 11:49 Disposition: Home, Self-Care 01 Condition: Fair Clinical Impression: Atrial fibrillation Qualifiers: Atrial fibrillation type: persistent Qualified Code(s): I48.1 - Persistent atrial fibrillation Referrals: PCP,None [Primary Care Provider] - Additional Instructions: Continue your current medications. Communicate your situation with your trouble shooter. Return as needed. Sepsis Event Note (ED) - Focused Exam Vital Signs: Vital Signs Temp Pulse Resp BP BP Pulse Ox 01/29/21 11:05 97 16 138/86 96 01/29/21 10:13 106 H 15 145/56 H 95 01/29/21 10:01 135/56 L 01/29/21 09:51 135/56 L 01/29/21 09:42 108/85 01/29/21 09:26 36.1 C 111 H 20 148/91 H 96 - My Orders Last 24 Hours: My Active Orders 01/29/21 09:16 Cardiac Monitoring [RC] .As Directed EKG 12 Lead [EK] Routine 01/29/21 09:26 Sodium Chloride 0.9% [Saline Flush] 10 ml FLUSH ASDIRECTED PRN Saline Lock Insert [OM.PC] Routine - Assessment/Plan Last 24 Hours: My Active Orders 01/29/21 09:16 Cardiac Monitoring [RC] .As Directed EKG 12 Lead [EK] Routine 01/29/21 09:26 Sodium Chloride 0.9% [Saline Flush] 10 ml FLUSH ASDIRECTED PRN Saline Lock Insert [OM.PC] Routine
[2021-01-29] MEDS ORDERED: Acetaminophen 500 MG Tab PO ONE (10:08)
[2021-01-29 11:07] VITALS: BP 138/86; PULSE 97
== END 2021-01-29 12:06 | disposition home or self-care (01) ==
LOC: JP.ED 09:15
DX: I48.19 Other persistent atrial fibrillation (principal); I10 Essential (primary) hypertension; K21.9 Gastro-esophageal reflux disease without esophagitis; E66.9 Obesity, unspecified; Z68.33 Body mass index [BMI] 33.0-33.9, adult; Z79.01 Long term (current) use of anticoagulants; Z79.899 Other long term (current) drug therapy
CPT/HCPCS: 36415; 80048; 84484; 93005; 99285; A9270

== ENCOUNTER 2021-03-25 14:24 | Emergency (ER) | payer MEDICARE, OTHER ==
[2021-03-25] MEDS ORDERED: HYDROmorphone 1 MG/ML Syringe IVPUSH ONE (16:19)
[2021-03-25] MEDS: Sodium Chloride 0.9% 10 ML Syringe FLUSH PRN ×2 (16:41→17:36)
[2021-03-25] MEDS ORDERED: Sodium Chloride 0.9% 80 ML IV SCH (17:00)
[2021-03-25] MEDS ORDERED: Iopamidol 612 MG/ML 100 ML Bottle IV SCH (17:00)
[2021-03-25 17:51] VITALS: BP 177/83; PULSE 60
--- NOTE | 2021-03-25 18:36 | CRLCT ---
For Patients: As a result of the 21st Century Cures Act, medical imaging exams and procedure reports are released immediately into your electronic medical record. You may view this report before your referring provider. If you have questions, please contact your health care provider. Indication: Fall with proximal leg injury with patient on Eliquis. Concern for compartment syndrome. Pain and swelling. Technique: Contrast enhanced CT examination of the proximal calf in the area of swelling is performed during the uneventful intravenous administration of 100 cc of Isovue-300 using spiral technique to obtain 2 millimeter thick sagittal, axial, and coronal sections. Please note that all CT scans at this facility use dose modulation, iterative reconstruction, and/or weight-based dosing when appropriate to reduce radiation dose to as low as reasonably achievable. Comparison: None available Findings: There is a prominent hematoma located within the subcutaneous fat of the anterior-medial proximal calf measuring 5.9 x 3.1 centimeters in cross-section and 7.6 centimeters in length. Since this is located within the subcutaneous fat, there is no possibility of compartment syndrome. Additional soft tissue contusion is seen lateral to the hematoma overlying the tibial tubercle, with no sign of any hematoma in this region. The muscular structures are normal in appearance with no sign of any hematoma or swelling to suggest compartment syndrome. The entire knee is not included on today`s study, with the superior patellofemoral articulation and suprapatellar region excluded from the examination. 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 There is a moderate joint effusion. There is mild primary osteoarthritis of both medial and lateral joint compartments with mild joint space narrowing and mild sclerosis of the articular surfaces of the lateral joint compartment. There is moderate lateral and mild medial marginal osteophyte formation. There is mild lateral subluxation of the tibia in relationship to the femoral condyles. There is no sign of fracture of the proximal tibial or fibular shafts. Impression: Large subcutaneous hematoma in the anterior-lateral subcutaneous fat of the proximal calf. Nothing seen to suggest a compartment syndrome. No hematoma is seen in any of the muscle bellies. 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 Moderate joint effusion. Mild primary osteoarthritis of the medial and lateral joint compartments. Please note that all CT scans at this facility use dose modulation, iterative reconstruction, and/or weight-based dosing when appropriate to reduce radiation dose to as low as reasonably achievable. Dictated by Kei Solo MD @ 03/25/2021 6:35:35 PM (Electronically Signed)
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
== END 2021-03-25 19:45 | disposition home or self-care (01) ==
LOC: JP.ED 14:24
DX: S80.11XA Contusion of right lower leg, initial encounter (principal); I48.91 Unspecified atrial fibrillation; I10 Essential (primary) hypertension; K21.9 Gastro-esophageal reflux disease without esophagitis; E66.9 Obesity, unspecified; Z68.34 Body mass index [BMI] 34.0-34.9, adult; Z79.01 Long term (current) use of anticoagulants; Z79.899 Other long term (current) drug therapy; W18.09XA Striking against other object with subsequent fall, initial encounter
CPT/HCPCS: 36415; 73701; 80048; 85025; 96374; 99284; J1170; Q9967

== ENCOUNTER 2021-12-31 10:24 | Emergency (ER) | payer MEDICARE, OTHER ==
[2021-12-31 10:49] VITALS: BP 175/81; PULSE 66
[2021-12-31] MEDS ORDERED: fentaNYL 50 MCG/ML SDV IM ONE (11:16)
[2021-12-31 11:56] LABS: TROPONIN I HIGH SENSITIVITY 9.6 pg/mL (<=60.3)
== END 2021-12-31 12:42 | disposition home or self-care (01) ==
LOC: JP.ED 10:24
DX: R07.89 Other chest pain (principal); M26.602 Left temporomandibular joint disorder, unspecified; K21.9 Gastro-esophageal reflux disease without esophagitis; I10 Essential (primary) hypertension; E66.9 Obesity, unspecified; Z68.35 Body mass index [BMI] 35.0-35.9, adult; Z79.01 Long term (current) use of anticoagulants; Z79.899 Other long term (current) drug therapy
CPT/HCPCS: 36415; 80048; 84484; 85025; 85651; 93005; 96372; 99285; J3010

== ENCOUNTER 2024-12-12 18:01 | Emergency (ER) | payer MEDICARE ==
[2024-12-12 19:00] LABS: BASOPHILS ABSOLUTE AUTO 0.08 K/uL (0.00-0.10); BASOPHILS PERCENT AUTO 1.3 % (0.1-1.3); EOSINOPHILS ABSOLUTE AUTO 0.41 K/uL (0.00-0.40); EOSINOPHILS PERCENT AUTO 6.7 % (0.0-5.4); IMMATURE GRAN ABSOLUTE AUTO 0.02 K/uL (0.00-0.23); IMMATURE GRAN PERCENT AUTO 0.3 % (0.0-0.7); LYMPHOCYTES ABSOLUTE AUTO 1.74 K/uL (0.8-3.3); LYMPHOCYTES PERCENT AUTO 28.6 % (11.4-47.7); MONOCYTES ABSOLUTE AUTO 0.70 K/uL (0.20-0.90); MONOCYTES PERCENT AUTO 11.5 % (3.3-12.6); NEUTROPHILS ABSOLUTE AUTO 3.13 K/uL (1.0-7.6); NEUTROPHILS PERCENT AUTO 51.6 % (40.0-78.1); PLATELET COUNT,PLT 345 K/uL (130-375); RED BLOOD CELL COUNT 4.30 M/uL (3.77-5.24); WHITE BLOOD CELL COUNT,WBC 6.1 K/uL (3.2-11.0)
[2024-12-12 19:15] LABS: BLOOD UREA NITROGEN,BUN 24.0 mg/dL (7-18); CARBON DIOXIDE,CO2 30.0 mmol/L (21-32); CHLORIDE,CL 104.0 mmol/L (100-108); CREATININE 0.9 mg/dL (0.6-1.0); EST CRCL DRUG DOSING (CG) 53.64 mL/min; ESTIMATED GFR 66.0 mL/min (>60); GLUCOSE RANDOM 91.0 mg/dL (74-106); POTASSIUM,K 3.8 mmol/L (3.6-5.2); SODIUM,NA 139.0 mmol/L (140-148)
[2024-12-12 19:21] VITALS: BP 112/60; PULSE 55
[2024-12-12] MEDS: Iopamidol 612 MG/ML 100 ML Bottle IV SCH (19:46)
== END 2024-12-12 20:50 | disposition home or self-care (01) ==
LOC: JP.ED 18:01
DX: S20.211A Contusion of right front wall of thorax, initial encounter (principal); S30.1XXA Contusion of abdominal wall, initial encounter; I48.91 Unspecified atrial fibrillation; I10 Essential (primary) hypertension; K21.9 Gastro-esophageal reflux disease without esophagitis; E66.9 Obesity, unspecified; Z68.34 Body mass index [BMI] 34.0-34.9, adult; Z79.01 Long term (current) use of anticoagulants; Z79.899 Other long term (current) drug therapy; W01.198A Fall on same level from slipping, tripping and stumbling with subsequent striking against other object, initial encounter
CPT/HCPCS: 36415; 71260; 74177; 80048; 85025; 99284; J7030; Q9967